=== PATIENT | male | born 1930 | race Caucasian/White ===

== ENCOUNTER 2020-08-16 14:23 | Emergency (ER) | payer MEDICARE, BC ==
[~2020-08-16] VITALS: Ht 177.8 cm; Wt 82.1 kg
[~2020-08-16 14:23] MED LIST: DIAZ5TAB PO; FINA5TAB4 PO; FLUO40CR TP; FLUT10SP NS; HYDR-2214 PO; LEVO25TA2 PO; LOSA50TA14 PO; RIVA20TA PO; SUCR1ORA5 PO; TAMS0.4C2 PO; potassium gluconate PEG
--- NOTE | 2020-08-16 14:47 | NUR ---
pt WALKED BACK FROM TRIAGE WITH CHIEF COMPLAINT OF LEFT KNEE SWELLING STARTING TODAY, DENIES PAIN.
--- NOTE | 2020-08-16 15:50 | NUR ---
XENA TOTH AT BEDSIDE FOR EVALUATION
--- NOTE | 2020-08-16 16:32 | NUR ---
PT BACK IN ROOM FROM
--- NOTE | 2020-08-16 17:39 | NUR ---
XENA TOTH AT BEDSIDE TO DISCUSS POC
--- NOTE | 2020-08-16 18:41 | NUR ---
ER PA AT BEDSIDE FOR arthrocentesis
[2020-08-16 18:45] VITALS: BP 169/64
== END 2020-08-16 19:06 | disposition home or self-care (01) ==
LOC: ED 17:16
DX: M71.22 Synovial cyst of popliteal space [Baker], left knee (principal); M25.462 Effusion, left knee
CPT/HCPCS: 82945; 84157; 85810; 87070; 87205; 89050; 89060; 99285